=== PATIENT | female | born 2000 | race Caucasian/White ===

== ENCOUNTER 2019-03-23 20:36 | Emergency (ER) | payer MEDICAID ==
[~2019-03-23] VITALS: Ht 152.4 cm; Wt 78.9 kg
[2019-03-23 20:46] VITALS: Ht 152.4 cm; Wt 78.9 kg
[2019-03-24 00:44] VITALS: BP 156/89
== END 2019-03-24 00:44 | disposition home or self-care (01) ==
LOC: ED 20:36
DX: S09.90XA Unspecified injury of head, initial encounter (principal); S00.83XA Contusion of other part of head, initial encounter; W21.07XA Struck by softball, initial encounter; Y93.64 Activity, baseball; Y92.89 Other specified places as the place of occurrence of the external cause; Y99.8 Other external cause status
CPT/HCPCS: 90715